=== PATIENT | female | born 1975 | race Caucasian/White ===

== ENCOUNTER → 2020-10-21 | Emergency (ER) | payer OTHER ==
[~2020-10-21] VITALS: Ht 177.8 cm; Wt 237.7 kg
[~2020-10-21] MED LIST: CLINDAMYCIN GEL TOP; FAMOTIDINE20 MG PO; FUROSEMIDE40 MG PO; GLUCOPHAGE500 MG PO; KEFLEX500 MG PO; KLOR-CON 1010 MEQ PO; LABETALOL HCL100 MG PO; LEVAQUIN500 MG PO; LISINOPRIL10 MG PO; NIFEDIPINE ER30 M1 PO; NYAMYC15 GM TOP
== END | disposition home or self-care (01) ==
LOC: ER 14:13
DX: L03.116 Cellulitis of left lower limb (principal); I89.0 Lymphedema, not elsewhere classified; E66.01 Morbid (severe) obesity due to excess calories
CPT/HCPCS: 99284

== ENCOUNTER 2020-12-29 15:26 | Inpatient (IN) | payer OTHER ==
[~2020-12-29] VITALS: Ht 177.8 cm; Wt 237.7 kg
[2020-12-29 16:28] LABS: BASOPHILS % 0.4 % (0.0-1.0); EOSINOPHILS # (AUTO) 0.1 (0.0-0.4); EOSINOPHILS % 1.3 % (0.0-6.0); HEMATOCRIT 39.7 % (34.2-44.1); HEMOGLOBIN 13.6 g/dL (12.0-16.0); LYMPHOCYTES # (AUTO) 1.5 (1.0-3.2); LYMPHOCYTES % 14.5 % (18.0-39.1); MEAN CORPUSCULAR HGB CONC 34.3 g/dL (31-35); MEAN CORPUSCULAR VOLUME 90.4 fL (81-99); MONOCYTES # (AUTO) 0.7 (0.2-0.8); MONOCYTES % 6.3 % (4.4-11.3); NEUTROPHILS # (AUTO) 7.9 (2.1-6.9); NEUTROPHILS % 76.9 % (38.7-80.0); PLATELET COUNT 273 x10e3/uL (140-360); RED BLOOD COUNT 4.39 x10e6/uL (3.6-5.1); RED CELL DISTRIBUTION WIDTH 12.8 % (11.7-14.4)
[2020-12-29 16:53] LABS: ALANINE AMINOTRANSFERASE 17 IU/L (0-55); ALBUMIN 3.6 g/dL (3.5-5.0); ALBUMIN/GLOBULIN RATIO 0.8 (0.8-2.0); ALKALINE PHOSPHATASE 91 IU/L (40-150); ANION GAP 14.5 mmol/L (8-16); BLOOD UREA NITROGEN 8 mg/dL (7-26); BUN/CREATININE RATIO 10 (6-25); CALCIUM 9.4 mg/dL (8.4-10.2); CARBON DIOXIDE 25 mmol/L (22-29); CHLORIDE 102 mmol/L (98-107); CREATININE, SERUM 0.79 mg/dL (0.57-1.11); EST GLOMERULAR FILTRATION RATE > 60 ML/MIN (60-); GLUCOSE 198 mg/dL (74-118); POTASSIUM 3.5 mmol/L (3.5-5.1); SODIUM 138 mmol/L (136-145)
[2020-12-29] MEDS ORDERED: CEFEPIME HCL 1 GM VIAL IV STA (18:11)
[2020-12-29] MEDS ORDERED: VANCOMYCIN 1GM/NS 250 ML 250 ML IV STA (18:11)
[2020-12-29] MEDS ORDERED: CEFEPIME HCL 1GM 1 GM in SODIUM CHLORIDE 0.9% 50ML 50 ML IV ONE (18:30)
[2020-12-29] MEDS: SODIUM CHLORIDE 0.9% 1000ML 1,000 ML IV SCH (19:49)
[2020-12-29 23:56] VITALS: BP 163/79
[2020-12-30] VITALS (9 sets, daily range): BP systolic 136–164; BP diastolic 89–96
[2020-12-30] MEDS: SODIUM CHLORIDE 0.9% 1000ML 1,000 ML IV SCH ×2 (00:18→14:15)
[2020-12-30] MEDS ORDERED: METOPROLOL TART25 MG PO (00:59)
[2020-12-30] MEDS ORDERED: IRBESARTAN150 MG PO (00:59)
[2020-12-30 05:14] LABS: BASOPHILS # (AUTO) 0.1 (0.0-0.1); BASOPHILS % 0.5 % (0.0-1.0); EOSINOPHILS # (AUTO) 0.1 (0.0-0.4); EOSINOPHILS % 1.3 % (0.0-6.0); HEMATOCRIT 36.6 % (34.2-44.1); HEMOGLOBIN 12.5 g/dL (12.0-16.0); LYMPHOCYTES # (AUTO) 1.2 (1.0-3.2); LYMPHOCYTES % 12.7 % (18.0-39.1); MEAN CORPUSCULAR HEMOGLOBIN 30.9 pg (28-32); MEAN CORPUSCULAR HGB CONC 34.2 g/dL (31-35); MEAN CORPUSCULAR VOLUME 90.4 fL (81-99); MONOCYTES # (AUTO) 0.7 (0.2-0.8); NEUTROPHILS # (AUTO) 7.3 (2.1-6.9); PLATELET COUNT 236 x10e3/uL (140-360); RED BLOOD COUNT 4.05 x10e6/uL (3.6-5.1); RED CELL DISTRIBUTION WIDTH 12.8 % (11.7-14.4)
[2020-12-30] MEDS ORDERED: TRAMADOL HCL 50 MG TAB PO PRN (05:15)
[2020-12-30 05:34] LABS: ALANINE AMINOTRANSFERASE 15 IU/L (0-55); ALBUMIN 3.1 g/dL (3.5-5.0); ALBUMIN/GLOBULIN RATIO 0.8 (0.8-2.0); ALKALINE PHOSPHATASE 75 IU/L (40-150); ANION GAP 13.9 mmol/L (8-16); BLOOD UREA NITROGEN 7 mg/dL (7-26); BUN/CREATININE RATIO 10 (6-25); CALCIUM 8.6 mg/dL (8.4-10.2); CARBON DIOXIDE 23 mmol/L (22-29); CHLORIDE 105 mmol/L (98-107); CREATININE, SERUM 0.69 mg/dL (0.57-1.11); EST GLOMERULAR FILTRATION RATE > 60 ML/MIN (60-); GLUCOSE 190 mg/dL (74-118); POTASSIUM 3.9 mmol/L (3.5-5.1); SODIUM 138 mmol/L (136-145)
[2020-12-30] MEDS ORDERED: DEXTROSE 50% SYRINGE 50 ML IV PRN (06:00)
[2020-12-30] MEDS ORDERED: VANCOMYCIN 1GM/NS 250 ML 250 ML IV ONE (06:00)
[2020-12-30] MEDS ORDERED: CEFEPIME HCL 1 GM VIAL IV SCH (06:00)
[2020-12-30] MEDS ORDERED: DOCUSATE SODIUM 100 MG CAP PO PRN (06:15)
[2020-12-30] MEDS ORDERED: ZOLPIDEM TARTRATE 5 MG TAB PO PRN (06:15)
[2020-12-30] MEDS ORDERED: ONDANSETRON HCL INJ 2MG/ML 2ML 2 MG/ML VIAL IV PRN (06:15)
[2020-12-30] MEDS: CLINDAMYCIN 300MG 50 ML IV SCH ×3 (06:25→17:07)
[2020-12-30] MEDS: CEFEPIME HCL 1GM 1 GM in SODIUM CHLORIDE 0.9% 50ML 50 ML IV SCH ×2 (07:00→17:07)
[2020-12-30 07:16] LABS: CHOL/HDL RATIO 3.1 (3.0-3.6)
[2020-12-30] MEDS ORDERED: INSULIN REGULAR, HUMAN 100 UNIT/1 ML 3ML VIAL SQ SCH (07:30)
[2020-12-30] MEDS: IRBESARTAN 150 MG TAB PO SCH (09:00)
[2020-12-30] MEDS: METOPROLOL TARTRATE 25 MG TAB PO SCH ×2 (09:00→17:00)
[2020-12-30] MEDS: ACETAMINOPHEN 325 MG TAB PO PRN (14:34)
[2020-12-31] VITALS (8 sets, daily range): BP systolic 109–181; BP diastolic 72–98
[2020-12-31] MEDS: SODIUM CHLORIDE 0.9% 1000ML 1,000 ML IV SCH ×3 (01:19→21:33)
[2020-12-31] MEDS: CLINDAMYCIN 300MG 50 ML IV SCH ×4 (05:30→19:57)
[2020-12-31] MEDS: CEFEPIME HCL 1GM 1 GM in SODIUM CHLORIDE 0.9% 50ML 50 ML IV SCH ×2 (06:12→19:15)
[2020-12-31] MEDS: IRBESARTAN 150 MG TAB PO SCH (09:20)
[2020-12-31] MEDS: METOPROLOL TARTRATE 25 MG TAB PO SCH (09:21)
[2020-12-31] MEDS ORDERED: VANCOMYCIN 1GM/NS 250 ML 250 ML IV SCH ×2 (12:15→19:00)
[2020-12-31] MEDS: ACETAMINOPHEN 325 MG TAB PO PRN (14:16)
[2020-12-31] MEDS ORDERED: METOPROLOL TARTRATE 50 MG TAB PO SCH (17:00)
[2020-12-31] MEDS ORDERED: DILTIAZEM HCL 5 MG/ML 5 ML VIAL IV STA (18:57)
[2020-12-31] MEDS ORDERED: DIGOXIN 0.125 MG TAB PO ONE (19:00)
[2020-12-31] MEDS ORDERED: DILTIAZEM HCL 5 MG/ML 5 ML VIAL IV ONE (19:00)
[2020-12-31] MEDS ORDERED: DILTIAZEM HCL VIAL 5 ML ONE (19:08)
[2020-12-31] MEDS ORDERED: DIGOXIN INJ 0.25 MG/ML 2 ML AMP IV STA (19:08)
[2020-12-31] MEDS ORDERED: DIGOXIN INJ 0.25 MG/ML 2 ML AMP ONE (19:22)
[2020-12-31 20:03] LABS: CREATINE KINASE MB 0.5 ng/mL (0-5.0)
[2020-12-31] MEDS: METOPROLOL TARTRATE INJ 1 MG/ML VIAL IV PRN (20:05)
[2021-01-01] VITALS (8 sets, daily range): BP systolic 124–166; BP diastolic 72–113
[2021-01-01] MEDS: CLINDAMYCIN 300MG 50 ML IV SCH ×4 (02:00→20:00)
[2021-01-01] MEDS: CEFEPIME HCL 1GM 1 GM in SODIUM CHLORIDE 0.9% 50ML 50 ML IV SCH ×2 (05:45→17:06)
[2021-01-01] MEDS: METOPROLOL TARTRATE 50 MG TAB PO SCH ×4 (05:46→17:06)
[2021-01-01] MEDS: SODIUM CHLORIDE 0.9% 1000ML 1,000 ML IV SCH ×2 (07:25→16:50)
[2021-01-01] MEDS: IRBESARTAN 150 MG TAB PO SCH (09:17)
[2021-01-01] MEDS ORDERED: DILTIAZEM HCL VIAL 5 ML ONE (09:29)
[2021-01-01] MEDS: METOPROLOL TARTRATE INJ 1 MG/ML VIAL IV PRN (17:06)
[2021-01-01] MEDS ORDERED: DIGOXIN INJ 0.25 MG/ML 2 ML AMP ONE (18:10)
[2021-01-01] MEDS ORDERED: DIGOXIN INJ 0.25 MG/ML 2 ML AMP IV ONE (18:15)
[2021-01-01] MEDS ORDERED: VANCOMYCIN 1GM/NS 250 ML 250 ML IV SCH (19:45)
[2021-01-02] VITALS (8 sets, daily range): BP systolic 119–167; BP diastolic 87–99
[2021-01-02] MEDS: CLINDAMYCIN 300MG 50 ML IV SCH ×4 (02:00→21:13)
[2021-01-02] MEDS: SODIUM CHLORIDE 0.9% 1000ML 1,000 ML IV SCH ×3 (04:20→23:22)
[2021-01-02] MEDS: METOPROLOL TARTRATE 50 MG TAB PO SCH ×4 (06:00→17:39)
[2021-01-02] MEDS: CEFEPIME HCL 1GM 1 GM in SODIUM CHLORIDE 0.9% 50ML 50 ML IV SCH ×2 (06:33→17:39)
[2021-01-02 07:48] LABS: BASOPHILS # (AUTO) 0.1 (0.0-0.1); BASOPHILS % 0.6 % (0.0-1.0); EOSINOPHILS # (AUTO) 0.1 (0.0-0.4); EOSINOPHILS % 1.4 % (0.0-6.0); HEMATOCRIT 38.5 % (34.2-44.1); LYMPHOCYTES # (AUTO) 1.4 (1.0-3.2); LYMPHOCYTES % 15.1 % (18.0-39.1); MEAN CORPUSCULAR HEMOGLOBIN 30.8 pg (28-32); MEAN CORPUSCULAR HGB CONC 33.8 g/dL (31-35); MEAN CORPUSCULAR VOLUME 91.2 fL (81-99); MONOCYTES # (AUTO) 0.6 (0.2-0.8); MONOCYTES % 6.9 % (4.4-11.3); NEUTROPHILS # (AUTO) 6.8 (2.1-6.9); NEUTROPHILS % 75.7 % (38.7-80.0); PLATELET COUNT 281 x10e3/uL (140-360); RED BLOOD COUNT 4.22 x10e6/uL (3.6-5.1); RED CELL DISTRIBUTION WIDTH 12.9 % (11.7-14.4)
[2021-01-02] MEDS: DIGOXIN 0.125 MG TAB PO SCH (08:29)
[2021-01-02 08:30] LABS: BLOOD UREA NITROGEN 9 mg/dL (7-26); BUN/CREATININE RATIO 12 (6-25); CALCIUM 8.6 mg/dL (8.4-10.2); CARBON DIOXIDE 24 mmol/L (22-29); CHLORIDE 104 mmol/L (98-107); CREATININE, SERUM 0.73 mg/dL (0.57-1.11); EST GLOMERULAR FILTRATION RATE > 60 ML/MIN (60-); GLUCOSE 182 mg/dL (74-118); SODIUM 138 mmol/L (136-145)
[2021-01-02] MEDS: IRBESARTAN 150 MG TAB PO SCH (08:31)
[2021-01-02] MEDS: VANCOMYCIN 1GM/NS 250 ML 250 ML IV SCH ×2 (09:37→21:50)
[2021-01-02] MEDS: BALSAM PERU/CASTOR OIL 60 GM OINT...G. TP SCH (11:15)
[2021-01-03] VITALS (8 sets, daily range): BP systolic 113–178; BP diastolic 78–98
[2021-01-03] MEDS: METOPROLOL TARTRATE 50 MG TAB PO SCH ×4 (00:09→18:13)
[2021-01-03] MEDS: CLINDAMYCIN 300MG 50 ML IV SCH ×4 (02:48→21:39)
[2021-01-03] MEDS: CEFEPIME HCL 1GM 1 GM in SODIUM CHLORIDE 0.9% 50ML 50 ML IV SCH ×2 (06:40→18:12)
[2021-01-03] MEDS: SODIUM CHLORIDE 0.9% 1000ML 1,000 ML IV SCH ×2 (08:30→18:23)
[2021-01-03] MEDS: VANCOMYCIN 1GM/NS 250 ML 250 ML IV SCH (08:32)
[2021-01-03] MEDS: DIGOXIN 0.125 MG TAB PO SCH (08:32)
[2021-01-03] MEDS: IRBESARTAN 150 MG TAB PO SCH (08:32)
[2021-01-03] MEDS: BALSAM PERU/CASTOR OIL 60 GM OINT...G. TP SCH (08:45)
[2021-01-03] MEDS ORDERED: ASPIRIN 81 MG CHEW TAB PO SCH (09:00)
[2021-01-03] MEDS ORDERED: ONDANSETRON HCL 4 MG ORAL DISINTEGRATING TAB PO PRN (13:30)
[2021-01-03] MEDS ORDERED: TYLENOL325 M2 PO (21:20)
[2021-01-03] MEDS ORDERED: DOXYCYCLINE HY100 M3 PO (21:20)
[2021-01-03] MEDS ORDERED: DIGOXIN125 MCG PO (21:20)
[2021-01-03] MEDS ORDERED: METOPROLOL TART50 MG PO (21:20)
[2021-01-03] MEDS ORDERED: CEFUROXIME250 MG PO (21:20)
[2021-01-03] MEDS ORDERED: MUPIROCIN22 GM TOP (21:22)
[2021-01-03] MEDS ORDERED: ASPIRIN325 MG PO (21:24)
[2021-01-03] MEDS ORDERED: LIPITOR10 MG PO (21:25)
[2021-01-03] MEDS ORDERED: METFORMIN HCL500 MG PO (21:25)
== END 2021-01-03 22:10 | disposition home or self-care (01) | DRG 603 ==
LOC: ER 16:00 → ERHOLD 20:17 → MED/SURG2 23:05
PROVIDERS: ADMIT Internal Medicine; ATTEND Internal Medicine
PROC: 02HV33Z Insertion of Infusion Device into Superior Vena Cava, Percutaneous Approach (ICD-10-PCS; principal; 2020-12-31)
DX: L03.116 Cellulitis of left lower limb (principal); Z68.45 Body mass index [BMI] 70 or greater, adult; I10 Essential (primary) hypertension; I89.0 Lymphedema, not elsewhere classified; E66.01 Morbid (severe) obesity due to excess calories; E11.9 Type 2 diabetes mellitus without complications; Z79.4 Long term (current) use of insulin; Z20.822 Contact with and (suspected) exposure to COVID-19; I48.91 Unspecified atrial fibrillation; Z79.01 Long term (current) use of anticoagulants; L02.416 Cutaneous abscess of left lower limb
CPT/HCPCS: 36415; 36569; 71045; 80048; 80053; 80061; 80202; 82550; 82553; 83036; 83605; 84484; 85025; 87040; 93005; 96361; 99251; 99284; J0692; J1160; J3370; J7030; U0002